=== PATIENT | female | born 1995 | race Caucasian/White ===

== ENCOUNTER 2018-03-16 16:17 | Emergency (ER) | payer OTHER ==
[2018-03-16 16:37] VITALS: BP 130/83
--- NOTE | 2018-03-16 16:55 | UC ---
Neck Pain HPI - HPI Summary HPI Summary: awoke yesterday with L sided neck pain and stiffness. took 200mg of ibuprofen this am and 400mg at noon with some relief. no known injury or precipitant. has gotten a bit better over today. pain worse when turn head to L - History of Current Complaint Chief Complaint: UCGeneralIllness Stated Complaint: L SIDED NECK PAIN Time Seen by Provider: 03/16/18 16:34 Hx Obtained From: Patient Hx Last Menstrual Period: 03/16/2018 ?: No Onset/Duration Of Injury/Symptoms: Days - 2 Onset/Duration: Sudden Onset - awoke yesterday am Severity: Moderate Pain Intensity: 7 Character: Stiff, Throbbing Aggravating Factors: Position, Movement Alleviating Factors: Nothing Associated Signs & Symptoms: Positive: Negative - Risk Factors Meningitis Risk Factors: Negative - Allergies/Home Medications Allergies/Adverse Reactions: Allergies Allergy/AdvReac Type Severity Reaction Status Date / Time No Known Allergies Allergy Verified 03/16/18 16:37 Home Medications: Home Medications Ibuprofen [Advil] 400 mg PO 03/16/18 [History] Multivitamin [Multivitamins] 03/16/18 [History] PMH/Surg Hx/FS Hx/Imm Hx Previously Healthy: Yes - Surgical History Surgical History: None - Family History Known Family History: Positive: None - Social History Occupation: Student Lives: With Family Alcohol Use: Occasionally Substance Use Type: None Smoking Status (MU): Never Smoked Tobacco Review Of Systems Constitutional: Positive: Negative Skin: Negative: Rash Respiratory: Positive: Negative Cardiovascular: Positive: Negative Musculoskeletal: Positive: Decreased ROM - neck d/t L sided pain Neurological: Positive: Negative. Negative: Headache Psychological: Positive: Negative All Other Systems Reviewed And Are Negative: Yes Physical Exam Triage Information Reviewed: Yes Appearance: Well-Appearing, No Pain Distress, Well-Nourished Vital Signs: Initial Vital Signs Temp 98.1 F 03/16/18 16:30 Pulse 106 03/16/18 16:30 Resp 18 03/16/18 16:30 BP 130/83 03/16/18 16:30 Pulse Ox 99 03/16/18 16:30 Vital Signs Reviewed: Yes ENT Exam: Normal ENT: Positive: TMs normal Neck: Positive: No Lymphadenopathy, Tenderness @ - L upper trapezius and L lat neck area Respiratory Exam: Normal Respiratory: Positive: Lungs clear Cardiovascular Exam: Normal Cardiovascular: Positive: RRR, Pulses Normal Neurological Exam: Normal Psychological Exam: Normal Skin Exam: Normal Skin: Negative: rashes Neck Pain Course/Dx - Differential Dx/Diagnosis Differential Dx/HQI/PQRI: Sprain, Strain, Torticollis Provider Diagnoses: L sided neck strain Discharge - Sign-Out/Discharge Documenting (check all that apply): Discharge/Admit/Transfer - Discharge Plan Condition: Good Disposition: HOME Patient Education Materials: Cervical Strain (ED) Referrals: No Primary Care Phys,NOPCP [Primary Care Provider] - Additional Instructions: use ibuprofen 800mg every 6 hours with food for the next 2 days apply warm packs to L side of neck and upper back every 2 hours for at least 30min. return if pain worsens at anytime - Billing Disposition and Condition Condition: GOOD Disposition: HOME
== END 2018-03-16 17:08 | disposition home or self-care (01) ==
LOC: UCEAST 16:17
DX: S16.1XXA Strain of muscle, fascia and tendon at neck level, initial encounter (principal); X58.XXXA Exposure to other specified factors, initial encounter; Y93.9 Activity, unspecified; Y92.9 Unspecified place or not applicable
CPT/HCPCS: 99201; G0463